=== PATIENT | male | born 1990 | race Caucasian/White ===

== ENCOUNTER 2022-02-08 12:51 | Emergency (ER) | payer OTHER, SELFPAY ==
--- NOTE | ~2022-02-08 | XR_ITS ---
EXAM: XR abdomen/kub 1V DATE: 02/08/2022 18:04 HISTORY: LT SIDED upper abd discomfort X TODAY, NO HX . COMPARISON: None available. FINDINGS: Upper abdomen excluded from the [id number]. Clear lung bases. Paucity of small bowel gas , which limits evaluation of the small bowel, otherwise normal bowel gas pattern. No organomegaly. No abnormal abdominal calcification. Regional bones and soft tissues normal for age. IMPRESSION: Upper abdomen excluded from the [id number]. Lack of small bowel gas limits evaluation for small bowel pathology. No evidence of large bowel ileus or obstruction. Otherwise normal abdomina l radiograph findings. Reviewed, dictated and finalized at location [facility]. BLE REPRESENTATIVE IMPRESSION: Upper abdomen excluded from the [id number]. Lack of small bowel gas limits evaluation for small bowel pathology. No evidence of large bowel ile us or obstruction. Otherwise normal abdominal radiograph findings.
[2022-02-08 12:56] VITALS: BP 131/73; PULSE 100; RESP 16; TEMP 36.6; O2SAT 99
[2022-02-08 13:20] LABS: Basophils Absolute Auto 0.1 K/mm3 (0.0-0.1); Basophils Percent Auto 0.5 % (0.2-1.2); Eosinophils Absolute Auto 0.4 K/mm3 (0-0.3); Eosinophils Percent Auto 2.8 % (0-4.4); Hematocrit 46.2 % (42.0-52.0); Hemoglobin 15.6 g/dL (14.0-18.0); Immature Granulocyte Absolute 0.06 K/mm3 (0.00-0.031); Immature Granulocyte Percent A 0.5 % (0-0.5); Lymphocytes Absolute Auto 2.23 K/mm3 (0.9-3.2); Lymphocytes Percent Auto 17.7 % (18.3-44.2); Mean Corpuscular HGB Conc 33.8 g/dl (32-36); Mean Corpuscular Hemoglobin 29.7 pg (26-34); Mean Corpuscular Volume 87.8 fl (80-100); Monocytes Absolute Auto 0.7 K/mm3 (0.1-0.6); Monocytes Percent Auto 5.6 % (2.6-8.5); Neutrophils Absolute Auto 9.2 K/mm3 (1.3-6.7); Neutrophils Percent Auto 72.9 % (45.5-73.1); Platelet Count Result 332 k/mm3 (150-375); Red Blood Count 5.26 M/mm3 (4.6-6.20); Red Cell Distribution Width 12.6 % (11.5-14.5); White Blood Count 12.6 K/mm3 (4.5-10.0)
[2022-02-08 13:40] LABS: Alanine Aminotransferase 54 U/L (6-50); Alkaline Phosphatase 81 U/L (38-126); Anion Gap 13 mmol/L (8-16); Aspartate Amino Transferase 34 U/L (17-59); Bilirubin,Total 0.6 mg/dL (0.2-1.3); Blood Urea Nitrogen 16 mg/dL (9-20); Calcium 10.1 mg/dL (8.4-10.2); Carbon Dioxide 24 mmol/L (22-30); Chloride 104 mmol/L (98-107); Estimated CRCL calculation 95 ml/min; Estimated Glomerular Filt Rate > 60; Glucose 93 mg/dL (65-110); Lipase 47 U/L (23-300); Potassium 4.6 mmol/L (3.4-5.0); Sodium 141 mmol/L (137-145)
[2022-02-08 13:44] LABS: Appearance Urine Clear (Clear); Bilirubin Urine Negative (Negative); Blood Urine Negative (Negative); Color Urine Yellow (Yellow); Glucose Urine UA Negative (Negative); Ketones Urine Negative (Negative); Leukocyte Esterase Ur Negative LEU/UL (Negative); Nitrate Urine Negative (Negative); Protein Urine Negative (Negative); Specific Grav Ur 1.025 (1.001-1.035); Urobilinogen Urine 0.2 mg/dL (<2.0)
[2022-02-08 14:22] LABS: Mucus Urine Rare /lpf; RBC Urine 0-2 /hpf (0-2); WBC Urine 0-3 /hpf
[2022-02-08 14:25] LABS: Add Urine Microscopic? YES
[2022-02-08 17:34] VITALS: BP 133/88; PULSE 100; RESP 18; TEMP 36.9; O2SAT 98
--- NOTE | 2022-02-08 17:46 | ED.ABDPAIN ---
HPI - Abdominal Pain General Chief Complaint: Abdominal Pain Stated Complaint: ABD PAIN Time Seen by Provider: 02/08/22 17:37 History of Present Illness HPI narrative: 32-year-old male no medical problems presents to the emergency room for sudden onset of left upper quadrant abdominal pain that began around 11:00 this morning. Patient denies any associated nausea, vomiting, diarrhea or constipation. Describes the pain as a dull and full sensation that does not radiate. Patient states that since has been sitting in the waiting room, the pain has subsided. Denies any abdominal surgeries. Denies injury or trauma. Denies dysuria. Denies acute back pain. Related Data Allergies Allergy/AdvReac Type Severity Reaction Status Date / Time No Known Allergies Allergy Verified 02/08/22 17:45 Review of Systems Review of Systems: CONSTITUTIONAL: Denies fever, chills, or sweats. EYES: Denies visual changes, redness, or discharge. ENT: Denies rhinorrhea, congestion, sore throat, or otalgia. CARDIOVASCULAR: Denies chest pain, palpitations, or edema. RESPIRATORY: Denies cough or dyspnea. GASTROINTESTINAL: Reports abdominal pain GENITOURINARY: Denies dysuria or hematuria. SKIN: Denies rash or itching. MUSCULOSKELETAL: Denies back pain, joint pain, or myalgia. NEUROLOGIC: Denies headache, numbness, dizziness, or weakness. PSYCHIATRIC: Denies anxiety or depression. Exam Narrative: GENERAL: Well-appearing, well-nourished, no physical limitations, and in no acute distress. HEAD: Normocephalic, atraumatic. EYES: Conjunctivae normal, PERRLA and EOMI. CHEST: Clear to auscultation. No respiratory distress. No wheezes rales or rhonchi. HEART: Regular rate and rhythm. No murmur heard. Normal peripheral pulses. ABDOMEN: Soft, LUQ tenderness, nondistended, normal active bowel sounds. BACK: No CVA tenderness EXTREMITIES: Normal range of motion. No edema. No clubbing or cyanosis SKIN: Warm, dry, no rash. No noted wounds NEURO: No focal deficits. Alert and oriented x3. MAEW. CN's II-XI intact bilaterally, normal gait PSYCH: Cooperative. Normal mood and affect. Course Vital Signs Vital signs: Vital Signs Temperature 36.6 C 02/08/22 12:56 Pulse Rate 100 02/08/22 12:56 Respiratory Rate 16 02/08/22 12:56 Blood Pressure 131/73 02/08/22 12:56 Pulse Oximetry 99 02/08/22 12:56 Oxygen Delivery Room Air 02/08/22 12:56 Temperature 36.9 C 02/08/22 17:34 Pulse Rate 100 02/08/22 17:34 Respiratory Rate 18 02/08/22 17:34 Blood Pressure 133/88 02/08/22 17:34 Pulse Oximetry 98 02/08/22 17:34 Oxygen Delivery Room Air 02/08/22 17:34 MDM - Abdominal Pain Lab Data Result diagrams: 02/08/22 13:08 02/08/22 13:08 Labs: Lab Results 02/08/22 02/08/22 02/08/22 Range/Units 13:08 13:08 13:25 WBC 12.6 H (4.5-10.0) K/mm3 RBC 5.26 (4.6-6.20) M/mm3 Hgb 15.6 (14.0-18.0) g/dL Hct 46.2 (42.0-52.0) % MCV 87.8 (80-100) fl MCH 29.7 (26-34) pg MCHC 33.8 (32-36) g/dl RDW 12.6 (11.5-14.5) % Plt Count 332 (150-375) k/mm3 MPV 10.0 (7.4-10.4) fl Immature Gran % (Auto) 0.5 (0-0.5) % Neut % (Auto) 72.9 (45.5-73.1) % Lymph % (Auto) 17.7 L (18.3-44.2) % Dawson % (Auto) 5.6 (2.6-8.5) % Eos % (Auto) 2.8 (0-4.4) % Baso % (Auto) 0.5 (0.2-1.2) % Lymph # (Auto) 2.23 (0.9-3.2) K/mm3 Dawson # (Auto) 0.7 H (0.1-0.6) K/mm3 Eos # (Auto) 0.4 H (0-0.3) K/mm3 Baso # (Auto) 0.1 (0.0-0.1) K/mm3 Abs Immat Gran (auto) 0.06 H (0.00-0.031) K/mm3 Absolute Neuts (auto) 9.2 H (1.3-6.7) K/mm3 Absolute Nucleated RBC 0.0 (0.0-0.012) K/mm3 Nucleated RBC % 0.0 (0.0-0.2) % Sodium 141 (137-145) mmol/L Potassium 4.6 (3.4-5.0) mmol/L Chloride 104 (98-107) mmol/L Carbon Dioxide 24 (22-30) mmol/L Anion Gap 13 (8-16) mmol/L BUN 16 (9-20) mg/dL Creatinine 1.10 (0.7-1.3) mg/dL Estim Cre
== END 2022-02-08 18:53 | disposition home or self-care (01) ==
PROVIDERS: Emergency Medicine; Emergency Provider Nurse Practitioner Family
DX: R10.12 Left upper quadrant pain (principal)
CPT/HCPCS: 36415; 74018; 80053; 81001; 83690; 85025; 99283

== ENCOUNTER 2022-02-09 14:07 | Emergency (ER) | payer OTHER, SELFPAY ==
--- NOTE | ~2022-02-09 | CT_ITS ---
EXAMINATION: CT abdomen pelvis w con DATE: 02/09/2022 19:12 INDICATION: left sided abd pain TECHNIQUE: Computed tomography (CT) of the abdomen and pelvis was performed with 100 mL Omnipaque-350 intravenous contrast. Automated exposure control and iterative reconstruction technique were employe d. The dose-length product was 1049.45 mGy-cm. COMPARISON: None. FINDINGS: Lower thorax: Unremarkable Liver: Mildly enlarged Biliary/Gallbladder: Gallbladder is normal. No bile duct dilation. Pancreas: No mass or duct dilation. Spleen: Normal. Adrenals:No mass. Kidneys: No mass, stone, or hydronephrosis. GI tract: Mild distal esophageal wall edema. No small or large bowel dilation. Normal appendix. Mesentery/Peritoneum: No ascites, mass, or free air. Single upper abdominal enlarged lymph node just posterior to the stomach and superior to the pancreas. Retroperitoneum: No mass. Pelvis: Pelvic organs are within normal limits. Soft Tissues: Enlarged bilateral inguinal lymph nodes. Bones: No acute osseous finding. IMPRESSION: Mild esophagitis. Hepatomegaly. Upper abdominal and bilateral inguinal lymphadenopathy. Consider scre ening for lymphoproliferative disorders. Reviewed, dictated and finalized at location K. SHADES SUPERVISOR IMPRESSION: Mild esophagitis. Hepatomegaly. Upper abdominal and bilateral inguinal lymphade nopathy. Consider screening for lymphoproliferative disorders.
[2022-02-09 14:11] VITALS: BP 124/79; PULSE 95; RESP 18; TEMP 36.6; O2SAT 97
[2022-02-09 14:22] LABS: Basophils Absolute Auto 0.1 K/mm3 (0.0-0.1); Basophils Percent Auto 0.5 % (0.2-1.2); Eosinophils Absolute Auto 0.4 K/mm3 (0-0.3); Eosinophils Percent Auto 3.7 % (0-4.4); Hematocrit 46.1 % (42.0-52.0); Hemoglobin 15.5 g/dL (14.0-18.0); Immature Granulocyte Absolute 0.04 K/mm3 (0.00-0.031); Immature Granulocyte Percent A 0.4 % (0-0.5); Lymphocytes Absolute Auto 2.32 K/mm3 (0.9-3.2); Lymphocytes Percent Auto 24.1 % (18.3-44.2); Mean Corpuscular HGB Conc 33.6 g/dl (32-36); Mean Corpuscular Hemoglobin 29.6 pg (26-34); Mean Corpuscular Volume 88.1 fl (80-100); Mean Platelet Volume 9.7 fl (7.4-10.4); Monocytes Absolute Auto 0.4 K/mm3 (0.1-0.6); Monocytes Percent Auto 3.6 % (2.6-8.5); Neutrophils Absolute Auto 6.5 K/mm3 (1.3-6.7); Neutrophils Percent Auto 67.7 % (45.5-73.1); Platelet Count Result 295 k/mm3 (150-375); Red Blood Count 5.23 M/mm3 (4.6-6.20); Red Cell Distribution Width 12.7 % (11.5-14.5); White Blood Count 9.6 K/mm3 (4.5-10.0)
[2022-02-09 14:32] LABS: Alanine Aminotransferase 47 U/L (6-50); Albumin Level 4.8 g/dL (3.5-5.1); Alkaline Phosphatase 72 U/L (38-126); Anion Gap 9 mmol/L (8-16); Aspartate Amino Transferase 31 U/L (17-59); Bilirubin,Total 0.9 mg/dL (0.2-1.3); Blood Urea Nitrogen 15 mg/dL (9-20); Calcium 9.5 mg/dL (8.4-10.2); Carbon Dioxide 25 mmol/L (22-30); Chloride 103 mmol/L (98-107); Estimated CRCL calculation 98 ml/min; Estimated Glomerular Filt Rate > 60; Glucose 116 mg/dL (65-110); Potassium 4.1 mmol/L (3.4-5.0); Sodium 137 mmol/L (137-145)
--- NOTE | 2022-02-09 17:43 | ED.ABDPAIN ---
HPI - Abdominal Pain General Chief Complaint: Abdominal Pain <SHERIF Gayle Last Filed: 02/09/22 19:41> Stated Complaint: abd pain- seen here yesterday <Patricia Parker PA-C - Last Filed: 02/09/22 19:41> Time Seen by Provider: 02/09/22 16:49 <Patricia Parker PA-C - Last Filed: 02/09/22 19:41> Source: patient <SHERIF Gayle Last Filed: 02/09/22 19:41> Mode of arrival: ambulatory <SHERIF Gayle Last Filed: 02/09/22 19:41> Limitations: no limitations <SHERIF Gayle Last Filed: 02/09/22 19:41> History of Present Illness HPI narrative: This is a 32 year old male that presents to the ER for left sided abdominal pain present since yesterday. Reports he was seen yesterday and had an abdomen x-ray that is without acute findings. He is continue to have left-sided abdominal pain. It is constant and crampy in nature. He followed up with his primary provider today who noted he had some lab abnormalities yesterday. Also had to be seen again in the ER. Denies fever, vomiting, or diarrhea. <SHERIF Gayle Last Filed: 02/09/22 19:41> Related Data Allergies/Adverse Reactions: Allergies Allergy/AdvReac Type Severity Reaction Status Date / Time No Known Allergies Allergy Verified 02/08/22 17:45 <Patricia Parker PA-C - Last Filed: 02/09/22 19:41> Review of Systems Review of Systems: CONSTITUTIONAL: Denies fever GASTROINTESTINAL: Reports abdominal pain. Denies nausea, vomiting, or diarrhea. GENITOURINARY: Denies dysuria <SHERIF Gayle Last Filed: 02/09/22 19:41> All systems reviewed & are unremarkable except as noted in HPI and below <SHERIF Gayle Last Filed: 02/09/22 19:41> [facility] Past Medical History Medical History: Medical History (Updated 02/09/22 @ 19:40 by Patricia Parker PA-C) No active medical problems <Patricia Parker PA-C - Last Filed: 02/09/22 19:41> Social History Social History: Social History (Updated 02/09/22 @ 17:48 by Patricia Parker PA-C) Substance use: never <Patricia Parker PA-C - Last Filed: 02/09/22 19:41> Exam Narrative: GENERAL: Well-appearing, well-nourished, and in no acute distress. HEAD: Normocephalic, atraumatic. EYES: EOMI. CHEST: Clear to auscultation. No respiratory distress. No wheezes rales or rhonchi HEART: Regular rate and rhythm. No murmur heard. Normal peripheral pulses. ABDOMEN: Soft, nondistended, normal active bowel sounds. Tender to palpation throughout the left side of the abdomen, without guarding EXTREMITIES: Normal range of motion. No edema. SKIN: Warm, dry, no rash. NEURO: No focal deficits. Alert and oriented x3. PSYCH: Normal mood and affect <Patricia Parker PA-C - Last Filed: 02/09/22 19:41> Course SENIOR SOLUTIONS CONSULTANT/PA Physician Supervision For this patient encounter, I reviewed the SENIOR SOLUTIONS CONSULTANT or PA documentation, treatment plan, and medical decision making <Camacho Perez MD - Last Filed: 02/09/22 23:25> Vital Signs Vital signs: Vital Signs Temperature 97.8 F 02/09/22 14:11 Pulse Rate 95 02/09/22 14:11 Respiratory Rate 18 02/09/22 14:11 Blood Pressure 124/79 02/09/22 14:11 Pulse Oximetry 97 02/09/22 14:11 Oxygen Delivery Room Air 02/09/22 14:11 Temperature 97.8 F 02/09/22 14:11 Pulse Rate 95 02/09/22 14:11 Respiratory Rate 18 02/09/22 14:11 Blood Pressure 124/79 02/09/22 14:11 Pulse Oximetry 97 02/09/22 14:11 Oxygen Delivery Room Air 02/09/22 14:11 <Patricia Parker PA-C - Last Filed: 02/09/22 19:41> Vital Signs Temperature 97.8 F 02/09/22 14:11 Pulse Rate 95 02/09/22 14:11 Respiratory Rate 18 02/09/22 14:11 Blood Pressure 124/79 02/09/22 14:11 Pulse Oximetry 97 02/09/22 14:11 Oxygen Delivery Room Air 02/09/22 14:11 Temperature 97.8 F 02/09/22 14:11 Pulse Rate 95 02/09/22 14:11 Respiratory Rate 18 02/09/22 14:11 Blood Pressure 124/79 02/09
== END 2022-02-09 20:04 | disposition home or self-care (01) ==
PROVIDERS: Emergency Provider Emergency Medicine; PCP Emergency Medicine
DX: K20.90 Esophagitis, unspecified without bleeding (principal); R59.1 Generalized enlarged lymph nodes
CPT/HCPCS: 36415; 74177; 80053; 85025; 99284; Q9967